=== PATIENT | female | born 1930 | race Caucasian/White ===

== ENCOUNTER 2019-04-11 10:48 | Emergency (ER) | payer MEDICARE, OTHER ==
[2019-04-11 12:27] VITALS: BP 95/63
--- NOTE | 2019-04-11 12:27 | UC ---
Throat Pain/Nasal Slick HPI - HPI Summary HPI Summary: 3 days of sore throat w/ dry cough. Hoarseness w/ nasal discharge and fatigue. she got her flu shot this year. No fever she is aware of. Denies sob or wheezing. No head or body aches.States she felt dizzy last two days. - History of Current Complaint Chief Complaint: UCRespiratory Stated Complaint: ST, COUGH,CONGESTION Time Seen by Provider: 04/11/19 12:14 Hx Obtained From: Patient Pain Intensity: 0 Associated Signs & Symptoms: Negative: Dysphagia, FB Sensation - Allergies/Home Medications Allergies/Adverse Reactions: Allergies Allergy/AdvReac Type Severity Reaction Status Date / Time No Known Allergies Allergy Verified 04/11/19 12:15 Home Medications: Home Medications Acetaminophen TAB* [Tylenol TAB*] 350 mg PO Q4H PRN 04/11/19 [History Confirmed 04/11/19] Levothyroxine TAB* [Synthroid TAB*] 50 mcg PO DAILY 04/11/19 [History Confirmed 04/11/19] Medication For Bone Density MONTHLY 04/11/19 [History] guaiFENesin ER TAB [Mucinex*] 600 mg PO BID PRN 04/11/19 [History Confirmed ] PMH/Surg Hx/FS Hx/Imm Hx - Surgical History Surgical History: None - Social History Alcohol Use: Daily Alcohol Amount: one glass of wine a night Substance Use Type: None Smoking Status (MU): Never Smoked Tobacco Review of Systems All Other Systems Reviewed And Are Negative: Yes Constitutional: Positive: Fatigue. Negative: Fever Skin: Negative: Rash ENT: Positive: Sore Throat, Nasal Discharge Respiratory: Negative: Shortness Of Breath, Cough Gastrointestinal: Negative: Nausea Neurological: Negative: Headache Physical Exam Triage Information Reviewed: Yes Appearance: Well-Appearing Vital Signs: Initial Vital Signs Temp 98.8 F 04/11/19 12:19 Pulse 90 04/11/19 12:19 Resp 16 04/11/19 12:19 BP 95/63 04/11/19 12:19 Pulse Ox 97 04/11/19 12:19 Vital Signs Reviewed: Yes Eyes: Positive: Conjunctiva Clear ENT: Positive: Other - soft palate petechiae. Neck: Positive: Supple, No Lymphadenopathy Respiratory Exam: Normal Cardiovascular Exam: Normal Neurological: Positive: Alert Skin: Negative: Rashes Throat Pain/Nasal Course/Dx - Course Course Of Treatment: Sore throat w fatigue and sinus symptoms. rapid strep neg. afebrile and good vitals. for mngmt advised salt water gargles and ibuprofen. BP low but hospice spiritual care coordinator stated this is her normal. Advised to go see her primary care provider if dizziness persists. - Differential Dx/Diagnosis Differential Diagnosis/HQI/PQRI: Pharyngitis, Other Provider Diagnosis: Pharyngitis Discharge ED - Sign-Out/Discharge Documenting (check all that apply): Patient Departure All imaging exams completed and their final reports reviewed: No Studies - Discharge Plan Condition: Good Disposition: HOME Patient Education Materials: Pharyngitis (ED) Referrals: Wendy RABAGO,Shashank Singh [Primary Care Provider] - Additional Instructions: Please return to urgent care if worsening. - Billing Disposition and Condition Condition: GOOD Disposition: Home
== END 2019-04-11 13:03 | disposition home or self-care (01) ==
LOC: UCCORT 10:48
DX: J02.9 Acute pharyngitis, unspecified (principal); R53.83 Other fatigue
CPT/HCPCS: 87651; 99211; G0463